=== PATIENT | male | born 1940 | race African-American/Black ===

== ENCOUNTER → 2016-11-15 | Outpatient (CLI) | payer BC ==
[2016-02-24 07:28] VITALS: BP 94/54
[~2016-11-15] MED LIST: AMLO10TA2 PO; ASPI-482 PO; ATOR10TA60 PO; ERGO500012 PO; FINA5TAB4 PO; FURO40TA4 PO; LISI-334 PO; LISI1TAB5 PO; MELO-150 PO; PANT40TA5 PO; TAMS0.4C2 PO; TAMS0.4C97 PO
--- NOTE | 2016-11-15 08:23 | RAD ---
Indication chronic renal disease. Grayscale imaging targeted to the kidneys was performed. Note is made of a previous renal ultrasound examination 02/24/2016. The right kidney measures 10.3 x 4.2 x 4.8 cm. No hydronephrosis or mass is seen. The urinary bladder is partially collapsed but grossly normal. The prostate appears moderately enlarged. Prostate volume is estimated at 41 cc. The visualized abdominal aorta appeared unremarkable. The left kidney measures 10.2 x 5.1 x 3.1 cm and shows no evidence of hydronephrosis or mass. IMPRESSION: No significant morphologic finding seen associated with either kidney
== END | disposition home or self-care (01) ==
LOC: US 07:39
PROVIDERS: ATTEND Internal Medicine Nephrology
DX: N18.4 Chronic kidney disease, stage 4 (severe) (principal)
CPT/HCPCS: 76770

== ENCOUNTER → 2017-06-12 | Outpatient (CLI) | payer BC ==
[2016-02-24 07:28] VITALS: BP 94/54
[~2017-06-12] MED LIST changes: -ERGO500012 PO; +ERGO500027 PO; -MELO-150 PO; +MELO15TA23 PO
[2017-06-12 11:07] LABS: BASO # 0.1 x10^3/uL (0.0-0.2); BASO % 2 % (0-3); EOS % 14 % (0-3); HEMATOCRIT 37.2 % (39.0-53.0); HEMOGLOBIN 12.5 g/dL (13.0-17.5); LYMPH # 2.2 x10^3/uL (1.0-4.8); LYMPH % 37 % (24-48); MEAN CORPUSCULAR HEMOGLOBIN 31 pg (25-35); MEAN CORPUSCULAR HGB CONC 34 g/dL (31-37); MEAN CORPUSCULAR VOLUME 93 fL (79-100); MONO % 8 % (0-9); NEUT % 39 % (31-73); PLATELET COUNT 243 x10^3/uL (140-400); RED BLOOD COUNT 4.01 x10^6/uL (4.30-5.70); RED CELL DISTRIBUTION WIDTH 17.2 % (11.5-14.5)
[2017-06-12 11:45] LABS: ALBUMIN 3.8 g/dL (3.4-5.0); CALCIUM 9.3 mg/dL (8.5-10.1); CREATININE 2.5 mg/dL (0.7-1.3); GFR 30.5; MAGNESIUM 2.1 mg/dL (1.8-2.4); PHOSPHORUS 3.2 mg/dL (2.6-4.7); POTASSIUM 4.8 mmol/L (3.5-5.1)
[2017-06-12 19:14] LABS: PTH INTACT 86 pg/mL (15-65)
== END | disposition home or self-care (01) ==
LOC: LAB 10:39
PROVIDERS: ATTEND Nurse Practitioner Family
DX: I12.9 Hypertensive chronic kidney disease with stage 1 through stage 4 chronic kidney disease, or unspecified chronic kidney disease (principal); N18.4 Chronic kidney disease, stage 4 (severe); D47.2 Monoclonal gammopathy; N40.0 Benign prostatic hyperplasia without lower urinary tract symptoms
CPT/HCPCS: 36415; 80069; 83735; 83970; 85025

== ENCOUNTER → 2018-04-20 | Outpatient (CLI) | payer BC ==
[2016-02-24 07:28] VITALS: BP 94/54
[~2018-04-20] MED LIST changes: -AMLO10TA2 PO; +AMLO10TA6 PO
[2018-04-20 10:25] LABS: BASO # 0.1 x10^3/uL (0.0-0.2); BASO % 1 % (0-3); EOS # 0.8 x10^3/uL (0.0-0.7); EOS % 14 % (0-3); HEMATOCRIT 35.4 % (39.0-53.0); HEMOGLOBIN 12.1 g/dL (13.0-17.5); LYMPH # 1.5 x10^3/uL (1.0-4.8); LYMPH % 27 % (24-48); MEAN CORPUSCULAR HEMOGLOBIN 32 pg (25-35); MEAN CORPUSCULAR HGB CONC 34 g/dL (31-37); MEAN CORPUSCULAR VOLUME 93 fL (79-100); MONO # 0.6 x10^3/uL (0.0-1.1); MONO % 11 % (0-9); NEUT # 2.6 x10^3uL (1.8-7.7); NEUT % 47 % (31-73); PLATELET COUNT 246 x10^3/uL (140-400); RED BLOOD COUNT 3.79 x10^6/uL (4.30-5.70); RED CELL DISTRIBUTION WIDTH 16.2 % (11.5-14.5); WHITE BLOOD COUNT 5.6 x10^3/uL (4.0-11.0)
[2018-04-20 11:07] LABS: ALBUMIN 3.6 g/dL (3.4-5.0); CALCIUM 9.3 mg/dL (8.5-10.1); CREATININE 2.7 mg/dL (0.7-1.3); GFR 27.9; MAGNESIUM 2.3 mg/dL (1.8-2.4); PHOSPHORUS 3.2 mg/dL (2.6-4.7); POTASSIUM 4.3 mmol/L (3.5-5.1)
[2018-04-20 20:14] LABS: CALCIUM PTH 9.5 mg/dL (8.6-10.2); CREATININE PTH 2.41 mg/dL (0.76-1.27); PHOSPHORUS PTH 2.9 mg/dL (2.5-4.5); PTH INTACT 99 pg/mL (15-65)
== END | disposition home or self-care (01) ==
LOC: LAB 09:59
DX: I12.9 Hypertensive chronic kidney disease with stage 1 through stage 4 chronic kidney disease, or unspecified chronic kidney disease (principal); N18.4 Chronic kidney disease, stage 4 (severe); N40.0 Benign prostatic hyperplasia without lower urinary tract symptoms; D47.2 Monoclonal gammopathy; E21.3 Hyperparathyroidism, unspecified
CPT/HCPCS: 36415; 80069; 82306; 83735; 83970; 85025

== ENCOUNTER → 2018-10-01 | Outpatient (CLI) | payer BC ==
[2016-02-24 07:28] VITALS: BP 94/54
[~2018-10-01] MED LIST changes: -AMLO10TA6 PO; +AMLO10TA8 PO
--- NOTE | 2018-10-01 09:31 | RAD ---
Complete abdominal ultrasound 10/01/2018 8:49 AM Clinical History: EPIGASTRIC PAIN Technique: Ultrasound examination of the abdomen was performed, and multiple static images were submitted for review. Comparison: Abdominal Doppler exam February 24, 2016 Findings: The pancreas is not visualized secondary to overlying gas filled bowel. The aorta and IVC demonstrate no gross abnormality. Liver is normal in size measuring 15 cm longitudinally. Visualized portions of liver demonstrate no focal abnormal abnormality. Hepatic echotexture is grossly normal. The common bile duct is nondilated measuring 3 mm in diameter. The gallbladder demonstrates no wall thickening, stones, or sludge. The right kidney is grossly normal in appearance measuring 10.1 cm in length. The spleen is poorly visualized but appears be grossly normal in size measuring approximately 10 cm longitudinally. Left kidney is grossly unremarkable in appearance measuring 11.2 cm in length. IMPRESSION: 1. No sonographic evidence of intra-abdominal abnormality 2. Nonvisualization of the pancreas . Electronically signed by: John Méndez MD (10/01/2018 9:28 AM) [id number]
== END | disposition home or self-care (01) ==
LOC: US 08:38
PROVIDERS: ATTEND Family Medicine
DX: R10.84 Generalized abdominal pain (principal)
CPT/HCPCS: 76700

== ENCOUNTER → 2019-04-16 | Outpatient (CLI) | payer BC ==
[2016-02-24 07:28] VITALS: BP 94/54
[~2019-04-16] MED LIST changes: +LISI1TAB19 PO; -LISI1TAB5 PO; -PANT40TA5 PO; +PANT40TA77 PO
--- NOTE | 2019-04-16 17:00 | RAD ---
Right lower extremity duplex arterial ultrasound History: Peripheral artery disease Findings: Multiple grayscale, color, and duplex spectral analysis sonographic images were acquired of the lower extremity arteries bilaterally. There are no previous similar exams. Diffuse atheromatous involvement of the right lower extremity arterial vasculature from the mid SFA level and more distally is identified. Monophasic flow is evident throughout the right lower extremity arterial vasculature. Velocities in cm/sec: RIGHT Common femoral artery 209 Profunda femoris artery 101 Proximal SFA 85 Mid SFA 133 Distal SFA 130 Popliteal artery 54 Anterior tibial artery 47 Dorsalis pedis artery 53 Posterior tibial artery 51 Peroneal artery not visualized Impression: Elevated right common femoral artery flow velocity of concern for more proximal significant hemodynamic stenosis. Diffuse atheromatous involvement of the right lower extremity arterial vasculature. Right peroneal artery is not delineated. Electronically signed by: Bruno Deleon MD (04/16/2019 4:57 PM) [facility]
== END | disposition home or self-care (01) ==
LOC: US 13:00
PROVIDERS: ATTEND Family Medicine
DX: I70.291 Other atherosclerosis of native arteries of extremities, right leg (principal)
CPT/HCPCS: 93926

== ENCOUNTER 2019-07-22 07:10 | Observation (INO) | payer BC ==
[~2019-07-22] VITALS: Ht 188 cm; Wt 80.3 kg
[2019-07-22] VITALS (16 sets, daily range): BP systolic 120–157; BP diastolic 66–78
[2019-07-22] MEDS ORDERED: IRBE300T3 PO (07:32)
[2019-07-22] MEDS ORDERED: FOLI0.8C PO (07:32)
[2019-07-22] MEDS ORDERED: AMLO5TAB10 PO (07:32)
[2019-07-22] MEDS ORDERED: LIDOCAINE 1% Multi-Dose 20 ML VIAL. ONE (07:35)
[2019-07-22] MEDS ORDERED: IODIXANOL 320 MG/ML 100 ML VIAL. ONE (07:36)
[2019-07-22 07:50] LABS: CALCIUM 9.4 mg/dL (8.5-10.1); CREATININE 2.7 mg/dL (0.7-1.3); GFR 27.8; POTASSIUM 4.8 mmol/L (3.5-5.1)
[2019-07-22] MEDS ORDERED: IV NORMAL SALINE 1000ML BAG 1,000 ML IV ONE ×2 (08:00→14:00)
[2019-07-22 08:11] LABS: HEMATOCRIT 34.5 % (39.0-53.0); HEMOGLOBIN 11.5 g/dL (13.0-17.5); RED BLOOD COUNT 3.76 x10^6/uL (4.30-5.70); RED CELL DISTRIBUTION WIDTH 17.4 % (11.5-14.5); WHITE BLOOD COUNT 4.5 x10^3/uL (4.0-11.0)
[2019-07-22 08:30] LABS: PROTHROMBIN TIME PATIENT 12.6 SEC (11.7-14.0)
[2019-07-22] MEDS ORDERED: MIDAZOLAM HCL/PF 5 MG/5 ML VIAL. ONE (08:30)
[2019-07-22] MEDS ORDERED: fentaNYL PF VIAL 250 MCG/5 ML VIAL ONE (08:31)
[2019-07-22] MEDS ORDERED: HEPARIN for IV BOLUS 10,000 UNIT/10 ML VIAL. ONE ×2 (08:31→09:27)
[2019-07-22] MEDS ORDERED: MIDAZOLAM HCL/PF 5 MG/5 ML VIAL. IV ONE (09:00)
[2019-07-22] MEDS ORDERED: HEPARIN for IV BOLUS 10,000 UNIT/10 ML VIAL. IV ONE (09:00)
[2019-07-22] MEDS ORDERED: LIDOCAINE 1% Multi-Dose 20 ML VIAL. INJ ONE (09:00)
[2019-07-22] MEDS ORDERED: IODIXANOL 320 MG/ML 100 ML VIAL. IART ONE (09:00)
[2019-07-22] MEDS ORDERED: fentaNYL PF VIAL 250 MCG/5 ML VIAL IV ONE (09:00)
[2019-07-22] MEDS ORDERED: CONTRAST GIVEN. MC PRN (09:15)
[2019-07-22] MEDS ORDERED: NITROGLYCERIN 200 MCG/2 ML SYRINGE FOR CATH/VASC LAB. ONE (09:45)
[2019-07-22] MEDS ORDERED: NITROGLYCERIN 200 MCG/2 ML SYRINGE FOR CATH/VASC LAB. IART ONE (10:00)
[2019-07-22] MEDS ORDERED: CLOPIDOGREL BISULFATE 75 MG TABLET PO ONE (10:15)
[2019-07-22] MEDS ORDERED: IV 1/2 NORMAL SALINE 1,000 ML IV SCH (10:18)
--- NOTE | 2019-07-22 10:18 | PDOC ---
MODERATE SEDATION ASSESSMENT RISKS/ALTERNATIVES Risks/Alternatives Risks and alternatives of this type of sedation and procedure discussed with: RISK/ALTERNATIVES: Patient H & P ON CHART H & P H & P on chart and reviewed for co-morbid conditions and appropriate labs. H&P ON CHART: Yes STATUS PREG STATUS ASSESSED: N/A MEDS/ALLERGIES REVIEWED Meds/Allergies Reviewed Medications and Allergies including time and route of recently administered narcotics and sedatives. MEDS/ALLERGIES REVIEWED: Yes ASA RATING ASA RATING: III AIRWAY ASSESSMENT Airway Assessment Airway patency, oral function limitations, presence of caps, crowns, dentures, partials, and ability to extend neck assessed. AIRWAY ASSESSMENT: Yes MALLAMPATI SCORE MALLAMPATI SCORE: II PRE-SEDATION ASSESSMENT PRE-SEDATION ASSESSMENT: Yes TONI VELASCO MD Jul 22, 2019 10:18
[2019-07-22] MEDS ORDERED: ACETAMINOPHEN 325 MG TABLET. PO PRN (10:30)
[2019-07-22] MEDS ORDERED: 0.9 % SODIUM CHLORIDE 10 ML DISP.SYRIN. IV PRN (10:30)
--- NOTE | 2019-07-22 10:45 | CARD ---
MR#: [id number] Date of Study: 07/22/2019 Ordering Physician: TONI ROJAS, Referring Physician: TONI ROJAS Tech: RT Jarocho (R) APPROVED REPORT Patient StatusCLI Director Of Teaching And Learning: RT Jarocho (R) TINA Procedure(s) performed: 1. Aortogram with bilateral lower extremity runoff 2. Successful orbital atherectomy/PHARMACIST IN CHARGE OWNER/stent placement to right superficial femoral artery MODERATE SEDATION 96 MINUTES FLOURO TIME 25.5 MINUTES DOSE 32.19 gycm2 CONTRAST 85CC'S VISIPAQUE INDICATION FOR PROCEDURE The indication(s) include : Peripheral artery disease with claudication and abnormal arterial duplex scan. PROCEDURE NARRATIVE After explaining the risks, benefits and alternative options, informed consent was obtained from sonya ent. Patient was brought to the cardiac Back End Engineer and his left groin was prepped and draped in the usu al fashion. 20 mL of 2% lidocaine was infiltrated into the skin and subcutaneous tissues for local an esthesia. Arterial access was obtained in the left common femoral artery and a 5 [place]an sheath was in serted. 5 [place] pigtail catheter was used to perform aortogram with bilateral lower extremity runoff . The following findings were noted. FINDINGS 1. 20% stenosis involving the distal descending aorta without any pullback gradient 2. No significant stenosis involving bilateral common iliac arteries 3. No significant stenosis involving bilateral external iliac arteries. The left internal iliac jorge ry showed complete occlusion. 4. No significant stenosis involving bilateral common femoral arteries. 5. The right superficial femoral artery showed tandem 50% stenoses in the proximal to midsegment fol lowed by 100% chronic total occlusion with distal reconstitution from collaterals. The left superfici al femoral artery did not show any significant stenosis. 6. No significant stenosis involving bilateral popliteal arteries. 7. There is good three-vessel runoff below the knee bilaterally INTERVENTION The sheath in the left groin was exchanged to a 6 [place]an 65 cm destination sheath which was advanced over the aortic lorne with the help of a crossover catheter and the tip was positioned in the proxim al segment of the right superficial femoral artery. After initial unsuccessful attempts at crossing t he lesion using a 0.014 inch command guidewire with backup support from Navicross catheter, this was crossed with a 0.035 inch Glidewire with backup support from 4 [place] angled glide catheter. The Glid ewire was then exchanged to a 0.014 inch viper wire. Multiple orbital atherectomy passes were then pe rformed with CSI 2.0 atherectomy mindy. This was then dilated with a 5.0 x 80 mm Pereira Markesan balloon , treated successfully with 5.5 x 60 mm Pereira supera self-expanding stent. This was then postdilated with a 5.0 x 80 mm Pereira balloon. Follow-up angiography showed resolution of the lesion with good d istal flow. Patient tolerated the procedure well. Hemostasis was achieved using Angio-Seal. There wer e no immediate complications. Conclusion 1. 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 Successful orbital atherectomy/PHARMACIST IN CHARGE OWNER/stent placement to the right superficial femoral artery Signed by : Toni Rojas, Electronically Approved : 07/22/2019 10:45:01
[2019-07-22] MEDS ORDERED: CLOPIDOGREL BISULFATE 75 MG TABLET ONE (11:14)
[2019-07-23 03:43] VITALS: BP 138/65
[2019-07-23 06:46] LABS: CALCIUM 8.9 mg/dL (8.5-10.1); CREATININE 2.4 mg/dL (0.7-1.3); GFR 31.8; POTASSIUM 5.1 mmol/L (3.5-5.1)
[2019-07-23 07:00] VITALS: BP 119/46
[2019-07-23] MEDS ORDERED: NITROGLYCERIN 4 MG/20 ML SYRINGE for CATH LAB. ONE ×2 (09:13→09:15)
[2019-07-23] MEDS ORDERED: dilTIAZem IV PUSH 25 MG/5 ML VIAL ONE (09:13)
[2019-07-23 09:37] LABS: CHOLESTEROL/HDL RATIO 5.5
[2019-07-23 11:00] VITALS: BP 134/67
--- NOTE | 2019-07-23 12:42 | PDOC3 ---
ARLENE STAPLES VISION MIXER 07/23/19 1242: Discharge Summary Visit Information Date of Admission: Jul 22, 2019 Date of Discharge: Jul 23, 2019 Admitting Diagnosis: Severe RLE PAD with claudication and abnormal duplex Final Diagnosis Severe RLE PAD with claudication and abnormal duplex, S/P LE percutaneous revascularization, HLP, Tobaccoism Brief Hospital Course Allergies Allergies Coded Allergies Type Severity Reaction Last Updated Verified nut - unspecified Allergy Intermediate 11/02/15 Yes Vital Signs Vital Signs Date Time Temp Pulse Resp B/P (MAP) Pulse Ox O2 Delivery O2 Flow Rate FiO2 07/23/19 11:00 97.8 65 16 134/67 (89) 98 Room Air 97.8 07/22/19 09:00 2.0 Lab Results Laboratory Tests Test 07/22/19 07:35 07/23/19 05:57 White Blood Count 4.5 x10^3/uL (4.0-11.0) Red Blood Count 3.76 x10^6/uL (4.30-5.70) Hemoglobin 11.5 g/dL (13.0-17.5) Hematocrit 34.5 % (39.0-53.0) Mean Corpuscular Volume 92 fL (79-100) Mean Corpuscular Hemoglobin 31 pg (25-35) Mean Corpuscular Hemoglobin Concent 33 g/dL (31-37) Red Cell Distribution Width 17.4 % (11.5-14.5) Platelet Count 218 x10^3/uL (140-400) Prothrombin Time 12.6 SEC (11.7-14.0) Prothromb Time International Ratio 1.0 (0.8-1.1) Sodium Level 134 mmol/L (136-145) 137 mmol/L (136-145) Potassium Level 4.8 mmol/L (3.5-5.1) 5.1 mmol/L (3.5-5.1) Chloride Level 103 mmol/L (98-107) 106 mmol/L (98-107) Carbon Dioxide Level 23 mmol/L (21-32) 22 mmol/L (21-32) Anion Gap 8 (6-14) 9 (6-14) Blood Urea Nitrogen 31 mg/dL (8-26) 27 mg/dL (8-26) Creatinine 2.7 mg/dL (0.7-1.3) 2.4 mg/dL (0.7-1.3) Estimated GFR (Cockcroft-Gault) 27.8 31.8 Glucose Level 94 mg/dL (70-99) 90 mg/dL (70-99) Calcium Level 9.4 mg/dL (8.5-10.1) 8.9 mg/dL (8.5-10.1) Triglycerides Level 61 mg/dL (0-150) Cholesterol Level 264 mg/dL (0-200) LDL Cholesterol, Calculated 204 mg/dL (0-100) VLDL Cholesterol, Calculated 12 mg/dL (0-40) Non-HDL Cholesterol Calculated 216 mg/dL (0-129) HDL Cholesterol 48 mg/dL (40-60) Cholesterol/HDL Ratio 5.5 Laboratory Tests Test 07/23/19 05:57 Sodium Level 137 mmol/L (136-145) Potassium Level 5.1 mmol/L (3.5-5.1) Chloride Level 106 mmol/L (98-107) Carbon Dioxide Level 22 mmol/L (21-32) Anion Gap 9 (6-14) Blood Urea Nitrogen 27 mg/dL (8-26) Creatinine 2.4 mg/dL (0.7-1.3) Estimated GFR (Cockcroft-Gault) 31.8 Glucose Level 90 mg/dL (70-99) Calcium Level 8.9 mg/dL (8.5-10.1) Triglycerides Level 61 mg/dL (0-150) Cholesterol Level 264 mg/dL (0-200) LDL Cholesterol, Calculated 204 mg/dL (0-100) VLDL Cholesterol, Calculated 12 mg/dL (0-40) Non-HDL Cholesterol Calculated 216 mg/dL (0-129) HDL Cholesterol 48 mg/dL (40-60) Cholesterol/HDL Ratio 5.5 Brief Hospital Course Mr. Brewer is a 79 old male admitted for planned LE angiogram. He has been having pain to his RLE with activity. No wounds. His RSFA has been noted with 100% chronic total occlusion and had a successful orbital atherectomy/PATHOLOGY LABORATORY AIDES TEACHER/stent placement. He tolerated the procedure well without immediate complications. VSS. Denies any CP, SOA and ambulatory. Neruovascular status to bilateral LE intact with soft left groin arteriotomy site without erythema or hematoma. He is to start plavix along with baby ASA. Continue his home BP regimen. LDL noted at 204 and will start on high dose statin. Discussed gradually increasing exercise and smoking cessation. Dietitian to see pt prior to DC. Post cath instructions. Follow up on Aug 07 at 1PM. Discharge Information Condition at Discharge: Stable Follow Up: Weeks (4) Disposition/Orders: D/C to Home Scheduled Amlodipine Besylate (Amlodipine Besylate) 5 Mg Tablet, 5 MG PO DAILY for blood pressure control, (Reported) Entered as Reported by: BLANCA CHAVEZ on 07/22/19 0732 Last Taken: Unknown Dose on 07/22/19 Last Action: Reviewed on 07/23/19 1249 by ARLENE STAPLES Atorvastatin Calcium (Atorvastatin Calcium) 40 Mg Tablet, 40 MG PO QHS for HLP, #30 Prescribed by: ARLENE STAPLES on 07/23/19 1251 Clopidogrel Bisulfate (Clopidogrel) 75 Mg Tablet, 75 MG PO DAILYWBKFT for PAD, #30 Prescribed by: ARLENE STAPLES on 07/23/19 1251 Ergocalciferol (Vitamin D2) (Vitamin D2) 50,000 Unit Capsule, 50,000 UNIT PO WEEKLY for 30 Days, Ref 1 Prescribed by: JANEEN HONEYCUTT on 10/14/15 0933 Last Taken: Unknown Dose on 07/21/19 Last Action: Reviewed on 07/23/19 1249 by ARLENE STAPLES Finasteride (Finasteride) 5 Mg Tablet, 1 TAB PO DAILY, #30 Ref 11 (Reported) Entered as Reported by: GAVIOTA HORTON on 10/08/15 1906 Last Taken: Unknown Dose on 07/22/19 Last Action: Reviewed on 07/23/19 1249 by ARLENE STAPLES Folic Acid (Folic Acid) 0.8 Mg Capsule, 1 CAP PO DAILY for supplement for 30 Days, #30 Ref 0 (Reported) Entered as Reported by: BLANCA CHAVEZ on 07/22/19 0732 Last Taken: Unknown Dose on 07/21/19 Last Action: Reviewed on 07/23/19 1249 by ARLENE STAPLES Irbesartan (Irbesartan) 300 Mg Tablet, 150 MG PO DAILY for ARB, (Reported) Entered as Reported by: BLANCA CHAVEZ on 07/22/19 0732 Last Taken: Unknown Dose on 07/22/19 Last Action: Reviewed on 07/23/19 1249 by ARLENE STAPLES Miscellaneous Medications Aspirin (Aspir 81) 81 Mg Tablet., 81 MG PO, (Reported) Entered as Reported by: EMILIE LAY on 05/28/14821 Last Taken: Unknown Dose on 07/22/19 Last Action: Reviewed on 07/23/19 1249 by ARLENE STAPLES Patient Instructions Patient Instructions GENERAL INSTRUCTIONS: 1. Your dressing should be removed prior to leaving the hospital. 2. It is OK to shower the day after your procedure. 3. If you received stents, be sure to carry your stent information card with you in your wallet/purse at all times. 4. Call the office immediately at [phone] if you notice any fever or if there is redness, worsening tenderness/pain, increased bruising, or drainage from the puncture site. 5. Should you have bleeding from the site, lie down immediately & put pressure on the site. The pressure should be hard enough to stop the bleeding. Have the nearest person call 911. DO NOT try to drive to the ER with active bleeding. 6. If you notice a change in color, coolness to touch, or loss of feeling in the affected extremity, come to the emergency room. Please have someone drive you or call 911 if no one is available. DO NOT drive yourself. 7. If you normally take glucophage (metformin), please do not take this medicine for 48 hours following your procedure. 8. DO NOT STOP TAKING YOUR PLAVIX OR ASPIRIN UNLESS IT IS CLEARED BY A WINCHMAN/CRANE OPERATOR OF YOUR CUSTOMER ACCOUNT COORDINATOR AT OUR OFFICE. 9. QUIT SMOKING: the [place] [employer], [place] [employer], & [place] [employer] have cessation resources available on their websites 10. Please have someone available to drive you home from the hospital as you may be limited by sedation medications given during the procedure. Femoral (Groin) access: 1. Do no lifting, pushing, pulling, bending, stooping, or recurrent stair climbing for 3 days following your procedure. 2. Once past the first 3 days, do not do any HEAVY exertion or lifting for one week following the procedure. No gym workouts, running, lifting greater than a gallon of milk, etc 3. Do not submerge in bath or pool for one week. OK to drive 3 days following your procedure, but if going long distance, do not go alone & take hourly breaks to get out of car and walk around. Call the office at [phone] for any questions or concerns. TONI VELASCO MD 07/23/19 2659: Discharge Summary Brief Hospital Course Brief Hospital Course Patient seen and examined. Agree with AUTOMATIC BLOCKER's assessment and plan. s/p successful atherectomy/PATHOLOGY LABORATORY AIDES TEACHER/stent to right SFA yesterday Groin vascular access site looks good Agree with initiating statin therapy for hyperlipidemia Importance of regular exercise regimen and smoking cessation reemphasized Follow-up with our office as scheduled Discharge Information Scheduled Amlodipine Besylate (Amlodipine Besylate) 5 Mg Tablet, 5 MG PO DAILY for blood pressure control, (Reported) Entered as Reported by: BLANCA CHAVEZ on 07/22/19 0732 Last Taken: Unknown Dose on 07/22/19 Last Action: Reviewed on 07/23/19 1249 by ARLENE STAPLES Atorvastatin Calcium (Atorvastatin Calcium) 40 Mg Tablet, 40 MG PO QHS for HLP, #30 Prescribed by: ARLENE STAPLES on 07/23/19 1251 Clopidogrel Bisulfate (Clopidogrel) 75 Mg Tablet, 75 MG PO DAILYWBKFT for PAD, #30 Prescribed by: ARLENE STAPLES on 07/23/19 1251 Ergocalciferol (Vitamin D2) (Vitamin D2) 50,000 Unit Capsule, 50,000 UNIT PO WEEKLY for 30 Days, Ref 1 Prescribed by: JANEEN HONEYCUTT on 10/14/15 0933 Last Taken: Unknown Dose on 07/21/19 Last Action: Reviewed on 07/23/19 1249 by ARLENE STAPLES Finasteride (Finasteride) 5 Mg Tablet, 1 TAB PO DAILY, #30 Ref 11 (Reported) Entered as Reported by: GAVIOTA HORTON on 10/08/15 1906 Last Taken: Unknown Dose on 07/22/19 Last Action: Reviewed on 07/23/19 1249 by ARLENE STAPLES Folic Acid (Folic Acid) 0.8 Mg Capsule, 1 CAP PO DAILY for supplement for 30 Days, #30 Ref 0 (Reported) Entered as Reported by: BLANCA CHAVEZ on 07/22/19 0732 Last Taken: Unknown Dose on 07/21/19 Last Action: Reviewed on 07/23/19 1249 by ARLENE STAPLES Irbesartan (Irbesartan) 300 Mg Tablet, 150 MG PO DAILY for ARB, (Reported) Entered as Reported by: BLANCA CHAVEZ on 07/22/19 0732 Last Taken: Unknown Dose on 07/22/19 Last Action: Reviewed on 07/23/19 124 by ARLENE STAPLES Miscellaneous Medications Aspirin (Aspir 81) 81 Mg Tablet.dr, 81 MG PO, (Reported) Entered as Reported by: EMILIE LAY on 05/28/14 0822 Last Taken: Unknown Dose on 07/22/19 Last Action: Reviewed on 07/23/199 by ARLENE ALONSO APRN Jul 23, 2019 12:42 TONI VELASCO MD Jul 23, 2019 17:42
[2019-07-23] MEDS ORDERED: ASPIRIN ENTERIC COATED 81 MG TABLET.DR. PO SCH (12:45)
[2019-07-23] MEDS ORDERED: CLOP75TA PO (12:51)
[2019-07-23] MEDS ORDERED: ATOR40TA59 PO (12:51)
[2019-07-23] MEDS ORDERED: CLOPIDOGREL BISULFATE 75 MG TABLET PO ONE (13:00)
--- NOTE | 2019-07-23 13:24 | NUR ---
SS following for discharge planning. SS reviewed pt chart. Pt is from home and is currently on room air. SS will continue to follow for discharge planning.
--- NOTE | 2019-07-23 14:15 | NUR ---
Discharge Note: VIRI [facility] Discharge instructions and discharge home medications reviewed with Patient and a copy given. All questions have been answered and understanding verbalized. Discontinued lines and drains: peripheral line. Patient discharged to Home or Self Care with Family Member via Wheelchair
[2019-07-23] MEDS ORDERED: ATORVASTATIN CALCIUM 40 MG TABLET. PO SCH (21:00)
[2019-07-24] MEDS ORDERED: CLOPIDOGREL BISULFATE 75 MG TABLET PO SCH (08:00)
== END 2019-07-23 14:17 | disposition home or self-care (01) ==
LOC: CCL 07:10 → 6 SOUTH 11:00
PROVIDERS: ADMIT Internal Medicine Cardiovascular Disease; ATTEND Internal Medicine Cardiovascular Disease
DX: I73.9 Peripheral vascular disease, unspecified (principal); R60.9 Edema, unspecified; I10 Essential (primary) hypertension; F17.200 Nicotine dependence, unspecified, uncomplicated; E78.5 Hyperlipidemia, unspecified; Z86.73 Personal history of transient ischemic attack (TIA), and cerebral infarction without residual deficits
CPT/HCPCS: 36415; 37227; 75630; 80048; 80061; 85027; 85610; 96374; 96375; C1713; C1724; C1725; C1760; C1769; C1876; C1892; C1894; G0269; G0378; G0379; J1644; J2250; J3010; J3490; J7030; Q9967; 99152; 99153; C1771